=== PATIENT | female | born 1950 | race Caucasian/White ===

== ENCOUNTER → 2016-05-24 | Outpatient (CLI) | payer OTHER | END | disposition home or self-care (01) | LOC: RD 12:07 | DX: M25.561 Pain in right knee (principal) ==

== ENCOUNTER 2018-09-18 15:00 | Emergency (ER) | payer OTHER ==
[~2018-09-18] VITALS: Ht 149.9 cm; Wt 68.5 kg
[2018-09-18 15:06] VITALS: Ht 149.9 cm; Wt 68.5 kg
[2018-09-18 16:33] VITALS: BP 133/65
== END 2018-09-18 16:34 | disposition home or self-care (01) ==
LOC: ED 15:00
DX: S20.211A Contusion of right front wall of thorax, initial encounter (principal); I10 Essential (primary) hypertension; E11.9 Type 2 diabetes mellitus without complications; Z88.1 Allergy status to other antibiotic agents; Z88.2 Allergy status to sulfonamides; V43.52XA Car driver injured in collision with other type car in traffic accident, initial encounter; Y93.I9 Activity, other involving external motion; Y92.488 Other paved roadways as the place of occurrence of the external cause; Y99.8 Other external cause status